=== PATIENT | male | born 1970 | race Caucasian/White ===

== ENCOUNTER 2024-03-14 08:07 | Outpatient (CLI) | payer BC | END 2024-03-14 08:08 | disposition home or self-care (01) | LOC: BICCT 08:07 | PROVIDERS: ATTEND Student in an Organized Health Care Education/Training Program | DX: N28.89 Other specified disorders of kidney and ureter (principal); K44.9 Diaphragmatic hernia without obstruction or gangrene; R91.1 Solitary pulmonary nodule | CPT/HCPCS: 74170; 82565 ==

== ENCOUNTER 2025-03-17 12:53 | Outpatient (CLI) | payer BC | END 2025-03-17 12:54 | disposition home or self-care (01) | LOC: BICCT 12:53 | PROVIDERS: ATTEND Family Medicine | DX: J98.4 Other disorders of lung (principal); R91.1 Solitary pulmonary nodule | CPT/HCPCS: 71250 ==